=== PATIENT | male | born 1995 | race Two or more races ===

== ENCOUNTER 2018-10-28 14:11 | Emergency (ER) | payer OTHER ==
[~2018-10-28] VITALS: Ht 177.8 cm; Wt 74.8 kg
[2018-10-28 14:23] VITALS: BP 127/69
--- NOTE | 2018-10-28 14:25 | NUR ---
ED Nurse Note: BROUGHT IN BY RA Guillen FROM WORK DUE TO ALOC, POSSIBLE OVERDOSE ON UNKNOWN SUBSTANCE. PER EMS, PT HAS HX OF SUBSTANCE ABUSE AND WAS RELEASED FROM FACILITY TODAY. PT IS NOW A/OX2. Addendum: 10/28/18 at 1542 by [email or web address] ED Nurse Note: BROUGHT IN BY RA Guillen FROM WORK DUE TO ALOC, POSSIBLE OVERDOSE ON UNKNOWN SUBSTANCE. PER EMS, PT HAS HX OF SUBSTANCE ABUSE AND WAS RELEASED FROM FACILITY TODAY. PT IS NOW A/OX1.
--- NOTE | 2018-10-28 14:37 | Emergency Room Report ---
History of Present Illness General Chief Complaint: Overdose Source: Family Member, EMS Present Illness HPI EMS was called by this patient's coworkers. He was at a construction site in become less responsive. His eyes are open. EMS couldn't get him to say anything. Allegedly he has a history of drug abuse. An Accu-Chek was 109 in the field. The patient is unable to answer questions at this time. According to family the patient's been evaluated by his private physician for anxiety. He's been treated with Xanax. They claim that he's been threatening to end his life. They're worried because he has bouts and knives in his bedroom. The last time he stated he wanted to harm himself was 2 days ago. Apparently he was treated at [facility] in [facility]. They prescribed Zofran and Imodium for anxiety and gastroenteritis. Unknown if the patient took these medications. Allergies: Coded Allergies: No Known Allergies (Unverified , 10/29/18) Patient History Limited by: medical condition - patient not answering Past Medical History: see triage record Social History: Reports: drug use Social History Narrative Works construction Reviewed Nursing Documentation: PMH: Agreed; PSxH: Agreed Nursing Documentation-PMH Past Medical History: No History, Except For Review of Systems All Other Systems: limited Physical Exam Vital Signs Date Time Temp Pulse Resp B/P (MAP) Pulse Ox O2 Delivery O2 Flow Rate FiO2 10/28/18 14:17 98.2 97 12 148/100 99 Room Air Sp02 EP Interpretation: reviewed, normal General Appearance: well appearing, no apparent distress, non-toxic, other - eyes closed and occasionally tearful, not answering questions Head: normocephalic Eyes: bilateral eye normal inspection, bilateral eye PERRL, bilateral eye EOMI ENT: moist mucus membranes Neck: supple Respiratory: lungs clear, normal breath sounds Cardiovascular #1: regular rate, rhythm Cardiovascular #2: 2+ radial (R) Gastrointestinal: normal inspection, normal bowel sounds, non tender, no mass, non-distended Musculoskeletal: back normal, no calf tenderness Neurologic: alert, motor strength/tone normal, DTRs symmetric, sensory intact, other - eyes closed, not speaking Psychiatric: depressed affect Suicide Risk Assessment: Suicidal Ideation: Yes Had intent to initiate attempt: Yes Pt's plan for suicide attempt: Yes Has means to complete attempt: Yes Skin: normal inspection, warm/dry Medical Decision Making Diagnostic Impression: Primary Impression: Altered level of consciousness Additional Impression: Suicidal ideation ER Course Patient presents with altered level of consciousness after possible drug ingestion. There is no evidence of head trauma. Accu-Chek was normal in the field. Evaluation will be with EKG, and labs. Differential includes PCP, other toxic ingestion (including loperamide and Xanax), alcohol, electrolyte imbalance, major depression with fugue state amongst others. The patient retreated with IV hydration and repeated exams.The patient is placed on a bus driver/monitor. EKG without injury. Labs significant for + THC. Medically clear for psychiatric evaluation @ 16:20. Patient state he is danger to self. Patient still refusing to speak and answer questions. PET placed on 5150. Patient improved. Fully alert and cooperative. Awaiting placement. Signed out to Dr. Hanson. Laboratory Tests Test 10/28/18 14:45 White Blood Count 11.2 K/UL (4.8-10.8) H Red Blood Count 4.98 M/UL (4.70-6.10) Hemoglobin 15.1 G/DL (14.2-18.0) Hematocrit 44.7 % (42.0-52.0) Mean Corpuscular Volume 90 FL (80-99) Mean Corpuscular Hemoglobin 30.2 PG (27.0-31.0) Mean Corpuscular Hemoglobin Concent 33.7 G/DL (32.0-36.0) Red Cell Distribution Width 12.1 % (11.6-14.8) Platelet Count 314 K/UL (150-450) Mean Platelet Volume 5.5 FL (6.5-10.1) L Neutrophils (%) (Auto) 74.0 % (45.0-75.0) Lymphocytes (%) (Auto) 15.9 % (20.0-45.0) L Monocytes (%) (Auto) 7.0 % (1.0-10.0) Eosinophils (%) (Auto) 2.2 % (0.0-3.0) Basophils (%) (Auto) 0.9 % (0.0-2.0) Sodium Level 138 MMOL/L (136-145) Potassium Level 4.0 MMOL/L (3.5-5.1) Chloride Level 104 MMOL/L (98-107) Carbon Dioxide Level 27 MMOL/L (21-32) Anion Gap 7 mmol/L (5-15) Blood Urea Nitrogen 11 mg/dL (7-18) Creatinine 1.1 MG/DL (0.55-1.30) Estimate Glomerular Filtration Rate > 60 mL/min (>60) Glucose Level 89 MG/DL (74-106) Calcium Level 9.4 MG/DL (8.5-10.1) Total Bilirubin 0.3 MG/DL (0.2-1.0) Aspartate Amino Transferase (AST) 20 U/L (15-37) Alanine Aminotransferase (ALT) 16 U/L (12-78) Alkaline Phosphatase 109 U/L (46-116) Total Creatine Kinase 157 U/L (26-308) Total Protein 8.0 G/DL (6.4-8.2) Albumin 4.2 G/DL (3.4-5.0) Globulin 3.8 g/dL Albumin/Globulin Ratio 1.1 (1.0-2.7) Salicylates Level 1.4 ug/mL (2.8-20) L Urine Opiates Screen Negative (NEGATIVE) Acetaminophen Level < 2 MCG/ML (10-30) L Urine Barbiturates Screen Negative (NEGATIVE) Phencyclidine (PCP) Screen Negative (NEGATIVE) Urine Amphetamines Screen Negative (NEGATIVE) Urine Benzodiazepines Screen Negative (NEGATIVE) Urine Cocaine Screen Negative (NEGATIVE) Urine Marijuana (THC) Screen Positive (NEGATIVE) H Serum Alcohol < 3 mg/dL EKG Diagnostic Results Rate: normal Rhythm: NSR ST Segments: no acute changes - J-point elevation Rhythm Strip Diag. Results EP Interpretation: yes Rhythm: NSR, no PVC's, no ectopy Last Vital Signs Date Time Temp Pulse Resp B/P (MAP) Pulse Ox O2 Delivery O2 Flow Rate FiO2 10/28/18 22:57 95.0 71 17 130/75 99 Room Air Status: improved Disposition: XFER TO PSYCH HOSP/UNIT Condition: Serious Scripts Unable to Obtain Active Prescriptions or Reported Meds Rome Aguilera MD Oct 28, 2018 14:37
[2018-10-28 15:00] LABS: BASOPHILS % (AUTO) 0.9 % (0.0-2.0); EOSINOPHILS % (AUTO) 2.2 % (0.0-3.0); HEMATOCRIT 44.7 % (42.0-52.0); HEMOGLOBIN 15.1 G/DL (14.2-18.0); LYMPHOCYTES % (AUTO) 15.9 % (20.0-45.0); MEAN CORPUSCULAR VOLUME 90 FL (80-99); PLATELET COUNT 314 K/UL (150-450); RED BLOOD COUNT 4.98 M/UL (4.70-6.10); RED CELL DISTRIBUTION WIDTH 12.1 % (11.6-14.8); WHITE BLOOD COUNT 11.2 K/UL (4.8-10.8)
[2018-10-28 15:12] LABS: ANION GAP 7 mmol/L (5-15); BLOOD UREA NITROGEN 11 mg/dL (7-18); CALCIUM 9.4 MG/DL (8.5-10.1); CARBON DIOXIDE 27 MMOL/L (21-32); CHLORIDE 104 MMOL/L (98-107); CREATININE 1.1 MG/DL (0.55-1.30); SODIUM 138 MMOL/L (136-145)
[2018-10-28 15:17] LABS: ALANINE AMINOTRANSFERASE 16 U/L (12-78); ALBUMIN 4.2 G/DL (3.4-5.0); ALBUMIN/GLOBULIN RATIO 1.1 (1.0-2.7); ALKALINE PHOSPHATASE 109 U/L (46-116); ASPARTATE AMINO TRANSFERASE 20 U/L (15-37); BILIRUBIN,TOTAL 0.3 MG/DL (0.2-1.0); CREATINE KINASE 157 U/L (26-308)
--- NOTE | 2018-10-28 15:42 | NUR ---
ED Nurse Note: PT IS AWAKE AND ALERT BUT DOES NOT ANSWER QUESTIONS. PER PT'S FATHER, PT WAS RECENTLY DISCHARGE FROM [facility] FOR SAME REAON.
[2018-10-28 16:23] VITALS: BP 118/75
--- NOTE | 2018-10-28 17:30 | NUR ---
HAND-OFF: Report given to NAMITA YODER.
[2018-10-28 18:23] VITALS: BP 124/81
--- NOTE | 2018-10-28 18:37 | NUR ---
ED Nurse Note: SPOKE WITH LIZZETH FOR PET EVAL. STILL WAITING FOR THEIR REPLY.
--- NOTE | 2018-10-28 19:59 | NUR ---
HAND-OFF: Report given to NAMITA Butt. pt is waiting for PET eval. parents at bedside.
[2018-10-28 20:21] VITALS: BP 129/78
[2018-10-28 22:57] VITALS: BP 130/75
[2018-10-29 00:57] VITALS: BP 114/72
[2018-10-29 02:31] VITALS: BP 117/80
[2018-10-29 04:01] VITALS: BP 126/82
[2018-10-29 05:48] VITALS: BP 136/80
[2018-10-29 07:15] VITALS: BP 109/61
--- NOTE | 2018-10-29 07:15 | NUR ---
ED Nurse Note: REPORT RECEIVED FROM NAMITA FINNEY. PT LAYING PEACEFULLY IN BED IN NAD. AOX4 AND EASILY AROUSABLE TO VOICE. PT IS CALM AND COOPERATIVE AND ANSWERING ALL QUESTIONS APPROPRIATELY. MOTHER AT BEDSIDE. VSS. PT DENIES SI/HI.
--- NOTE | 2018-10-29 09:00 | NUR ---
ED Nurse Note: BREAKFAST TRAY PROVIDED FOR PT AND MOTHER.
--- NOTE | 2018-10-29 09:09 | NUR ---
ED Nurse Note: SPOKE WITH NAMITA LOUISE FROM [facility]. REPORT GIVEN. FACILITY HAS BED AVAILABLE IS READY TO ACCEPT PT. WILL SET UP TRANSPORT AND SEND PT.
--- NOTE | 2018-10-29 09:54 | NUR ---
Note kirk in EDM - 10/29/18 at 0958 by DIEGO ED Nurse Note: PT SITTING PEACEFULLY IN BED IN NAD. AOX4. DISCHARGE PAPERWORK EXPLAINED TO PT. PT VERBALIZES UNDERSTANDING AND ALL QUESTIONS ANSWERED. DISCHARGE PAPERWORK GIVEN TO PT AND ID WRISTBAND REMOVED. PT ALSO GIVEN RESOURCES IN [facility]. PT WALKED OUT OF ER WITH STEADY GAIT AND ALL BELONGINGS.
[2018-10-29 11:37] VITALS: BP 112/64
--- NOTE | 2018-10-29 11:39 | NUR ---
ED Nurse Note: LIFELINE AT BEDSIDE. REPORT GIVEN TO EMS. PT TRANSFERRED TO [facility] VIA AMBULANCE WITH ALL BELONGINGS ACCOMPANIED BY EMS. VSS.
== END 2018-10-29 11:48 | disposition short-term general hospital (02) ==
LOC: EDBD 14:11 → EMR 14:55
DX: R41.82 Altered mental status, unspecified (principal); R45.851 Suicidal ideations
CPT/HCPCS: 36415; 80053; 80307; 82550; 85025; 93005; 96360; 99285; G0480; 80329